=== PATIENT | female | born 2000 | race Caucasian/White ===

== ENCOUNTER 2019-03-03 03:24 | Observation (INO) | payer OTHER ==
[2019-03-03] MEDS ORDERED: Morphine 4 MG/ML Syringe IVPUSH PRN (04:06)
[2019-03-03] MEDS ORDERED: Ondansetron 4 MG/2 ML SDV IVPUSH PRN (04:07)
--- NOTE | 2019-03-03 09:27 | US ---
INDICATION: possible ruptured ovarian cyst Indication: Possible ruptured ovarian cyst. Technique: Pelvic ultrasound. Transabdominal and endovaginal imaging of the pelvis was obtained. Endovaginal imaging of the pelvis was obtained to better evaluate the adnexa and endometrial complex. Color/spectral Doppler was performed to evaluate for ovarian torsion. Comparison: None. Findings: Normal, low resistance arterial blood flow is preserved to the left ovary on color/spectral Doppler. Left ovary measures 3.2 x 3.0 x 1.5 cm. There is a heterogeneous mass in the right adnexa, which could represent a blood clot, given the clinical suspicion for a ruptured ovarian cyst. An adnexal mass is not excluded by ultrasound. A morphologically normal right ovary is not seen. The right adnexal lesion measures 7 centimeters in long axis dimension. Uterine corpus is within normal limits. Distended urinary bladder. Bladder measures 10.8 x 16.0 x 6.2 cm. Impression: 1. Heterogeneous mass in the right adnexa, which could represent a blood clot given the clinical suspicion for a ruptured ovarian cyst. 2. Suggest correlation with serum/urine HCG, to exclude the less likely possibility of a ruptured ectopic . 3. Assuming there is no clinical suspicion for ruptured ectopic , CT of the abdomen and pelvis may be obtained to further assess. Dictated by Garth Cervantes MD @ 03/03/2019 9:25:16 AM Dictated by: Garth Cervantes MD @ 03/03/2019 09:25:22 (Electronically Signed)
--- NOTE | 2019-03-03 12:11 | PCM.HP.2 ---
H&P History of Present Illness - General Date of Service: 03/03/19 Admit Problem/Dx: Admission Diagnosis/Problem Admission Diagnosis/Problem Ruptured ovarian cyst Source of Information: Patient - History of Present Illness Initial Comments - Free Text/Narative: 18yo P0 LMP 3 weeks ago, referred from [facility] for ruptured ovarian cyst. She had sexual intercourse yesterday morning and developed lower abdominal pain and chest pain afterwords. She has a CT scan in [facility] ER that confirmed ovarian cyst rupture her H/H dropped from 12/36 to 10.6/31.4 , here repeat here has been stable at 10 hemoglobin X 2 She had an USS that showed urinary retention with Cabrera output of 860mls. Her USS showed Right complex collection in the right adnexa. 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 PMSH; NIL Allerges: Nil Exam; General; NAD Chest: CTA BL CVS: s1 s2 no murmurs Abdomen; flat , soft no tenderness or guarding Pelvic: Normal external genitalia , anteverted uterus normal size , no tenderness VSS;110/73 A/P 18yo P0 rupture ovarian cyst , urinary retention Plan Remove cabrera at 3pm If voids can discharge home Will discharge home with percocet and motrin Follow up in 1 week in the clinic Counselled on OCP to prevent future cyst formation - Related Data Allergies/Adverse Reactions: Allergies Allergy/AdvReac Type Severity Reaction Status Date / Time No Known Allergies Allergy Verified 03/03/19 03:34 Home Medications: Home Meds Ibuprofen [Advil] 200 mg PO Q6H PRN 03/03/19 [History] Past Medical History - Past Health History Medical/Surgical History: Denies Medical/Surgical History [employer] History: Reports: Other (See Below) Other OB/BYN History: ruptured ovarian cyst 03/02/2019 - Past Surgical History HEENT Surgical History: Reports: Other (See Below) Other HEENT 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 Social & Family History - Family History Family Medical History: Noncontributory - Tobacco Use Smoking Status *Q: Current Every Day Smoker Years of Tobacco use: 6 Packs/Tins Daily: 0.2 Used Tobacco, but Quit: No Second Hand Smoke Exposure: No - Alcohol Use Days Per Week of Alcohol Use: 1 Number of Drinks Per Day: 3 Total Drinks Per Week: 3 - Recreational Drug Use Recreational Drug Use: No H&P Review of Systems - Review of Systems: Review Of Systems: See Below Exam - Exam Exam: See Below - Vital Signs Vital Signs: Last Vital Signs Temp 36.7 C 03/03/19 08:00 Pulse 87 03/03/19 08:00 Resp 16 03/03/19 08:00 BP 110/63 03/03/19 08:00 Pulse Ox 99 03/03/19 08:00 Weight: 68.901 kg - Patient Data Lab Results Last 24 hrs: Laboratory Results - last 24 hr 03/03/19 03/03/19 03/03/19 Range/Units 05:45 05:45 11:26 WBC 13.93 H 13.78 H (4.0-11.0) K/uL RBC 3.33 L 3.42 L (4.30-5.90) M/uL Hgb 9.8 L 10.1 L (12.0-16.0) g/dL Hct 29.6 L 30.5 L (36.0-46.0) % MCV 88.9 89.2 (80.0-98.0) fL MCH 29.4 29.5 (27.0-32.0) pg MCHC 33.1 33.1 (31.0-37.0) g/dL RDW Std Deviation 42.2 41.9 (28.0-62.0) fl RDW Coeff of Donna 13 13 (11.0-15.0) % Plt Count 219 224 (150-400) K/uL MPV 10.30 10.10 (7.40-12.00) fL Neut % (Auto) 74.7 80.2 H (48.0-80.0) % Lymph % (Auto) 17.9 13.1 L (16.0-40.0) % [place] % (Auto) 7.2 6.6 (0.0-15.0) % Eos % (Auto) 0.1 0.0 (0.0-7.0) % Baso % (Auto) 0.1 0.1 (0.0-1.5) % Neut # (Auto) 10.4 H 11.1 H (1.4-5.7) K/uL Lymph # (Auto) 2.5 H 1.8 (0.6-2.4) K/uL [place] # (Auto) 1.0 H 0.9 H (0.0-0.8) K/uL Eos # (Auto) 0.0 0.0 (0.0-0.7) K/uL Baso # (Auto) 0.0 0.0 (0.0-0.1) K/uL Nucleated RBC % 0.0 0.0 /100WBC Nucleated RBCs # 0 0 K/uL Blood Type A POSITIVE Antibody Screen NEGATIVE Result Diagrams: 03/03/19 11:26 *Q Meaningful Use (ADM) - VTE *Q VTE Criteria *Q: ambulate - Problem List (1) Ovarian cyst rupture SNOMED Code(s): 66304716 ICD Code: N83.209 - UNSPECIFIED OVARIAN CYST, UNSPECIFIED SIDE Status: Acute Current Visit: Yes Problem List Initiated/Reviewed/Updated: Yes Orders Last 24hrs: Active Orders 24 hr Category Date Time Status Patient Status [ADT] Routine ADT 03/03/19 03:48 Active Insert Cabrera Catheter [Insert Urinary Catheter] [OM.PC] Care 03/03/19 08:00 Ordered Q24H Insert Cabrera Catheter [Insert Urinary Catheter] [OM.PC] Care 03/04/19 08:00 Ordered Q24H Urinary Catheter Assessment [RC] Q8H Care 03/03/19 11:01 Active NPO Now [Nothing per Oral Now Diet] [DIET] Diet 03/03/19 Breakfast Active CULTURE URINE [RM] Routine Lab 03/03/19 04:00 Received Serum Beta-HCG [BHCG QUANTITATIVE] [REF] Stat Lab 03/03/19 11:26 Received Morphine Med 03/03/19 04:06 Active 4 mg IVPUSH Q4H PRN Ondansetron [Zofran] Med 03/03/19 04:07 Active 4 mg IVPUSH Q4H PRN Medication Orders Morphine Sulfate (Morphine) 4 mg IVPUSH Q4H PRN PRN Reason: Pain Ondansetron HCl (Zofran) 4 mg IVPUSH Q4H PRN PRN Reason: Nausea Assessment/Plan Comment:: See HPI
[2019-03-03 13:31] VITALS: BP 106/60; PULSE 78
== END 2019-03-03 15:40 | disposition home or self-care (01) ==
LOC: MW.MS 03:24
PROVIDERS: ADMIT Obstetrics & Gynecology; ATTEND Obstetrics & Gynecology
DX: N83.291 Other ovarian cyst, right side (principal); R33.9 Retention of urine, unspecified; F17.200 Nicotine dependence, unspecified, uncomplicated
CPT/HCPCS: 36415; 51702; 76856; 76856-26; 84702; 85025; 86850; 86900; 86901; 87086; G0378